=== PATIENT | female | born 1990 | race Caucasian/White ===

== ENCOUNTER 2017-09-21 14:19 | Outpatient (RCR) | payer OTHER | END 2017-10-10 13:21 | disposition home or self-care (01) | LOC: WSOH 14:19 | DX: S06.0X0A Concussion without loss of consciousness, initial encounter (principal); G44.309 Post-traumatic headache, unspecified, not intractable; W54.1XXA Struck by dog, initial encounter; Y93.K9 Activity, other involving animal care; Y99.0 Civilian activity done for income or pay; Z88.2 Allergy status to sulfonamides ==

== ENCOUNTER → 2017-12-04 | Outpatient (CLI) | payer OTHER | LOC: COL.RAD 10:26 | DX: G44.321 Chronic post-traumatic headache, intractable (principal) | CPT/HCPCS: A9585 ==